=== PATIENT | female | born 1995 | race Two or more races ===

== ENCOUNTER 2021-05-07 01:44 | Emergency (ER) | payer MEDICAID ==
[~2021-05-07] VITALS: Ht 160 cm; Wt 100.0 kg
[2021-05-07] MEDS ORDERED: LORazepam 1 MG tablet PO ONE (03:10)
--- NOTE | 2021-05-07 04:42 | NUR ---
PATIENT APPEARS ASLEEP WITH NO S+SX OF DISTRESS OR PAIN
--- NOTE | 2021-05-07 06:16 | NUR ---
dc instructions written but the patient is not able to stay awake long enough to attempt to call for a ride. will report to oncoming shift to dc when patient is more alert and safe to go home.
[2021-05-07 06:49] VITALS: BP 130/71
== END 2021-05-07 06:52 | disposition home or self-care (01) ==
LOC: ER 01:45
DX: T50.901A Poisoning by unspecified drugs, medicaments and biological substances, accidental (unintentional), initial encounter (principal); R42 Dizziness and giddiness; R00.2 Palpitations; F41.9 Anxiety disorder, unspecified; Y92.89 Other specified places as the place of occurrence of the external cause
CPT/HCPCS: 93005; 99283